=== PATIENT | female | born 1955 | race Two or more races ===

== ENCOUNTER 2019-06-16 21:19 | Emergency (ER) | payer OTHER, MEDICAID ==
[~2019-06-16] VITALS: Ht 152.4 cm; Wt 63.5 kg
--- NOTE | 2019-06-16 21:19 | NUR ---
PT BIBA BLS. TAKEN TO BED 9
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
--- NOTE | 2019-06-16 21:29 | NUR ---
Dr. Edwards examining patient.
[2019-06-16] MEDS ORDERED: ACETAMINOPHEN EXTRA STRENGTH 500 MG TAB PO ONE (21:35)
--- NOTE | 2019-06-16 21:39 | NUR ---
PT TAKEN TO CT
--- NOTE | 2019-06-16 22:30 | NUR ---
PT RETURNED FROM CT. PT IS AWAKE, LAYING ON BED. C/O OF NECK, SHOULDER, AND BACK PAIN 06/30. DR HENRIQUEZ AWARE. WILL CONTINUE TO MONITOR.
--- NOTE | 2019-06-16 22:37 | NUR ---
SON AT BEDSIDE
[2019-06-16 23:25] VITALS: BP 131/77
--- NOTE | 2019-06-16 23:25 | NUR ---
PT DISCHARGE WITH PAPERWORK. RX NAPROXEN FOR PAIN. EDUCATED PT REGARDING MEDICATIONS AND SIDE EFFECTS. TOLD PT TO FOLLOW UP WITH PCP AND WHEN TO RETURN TO ED. PT VSS. ALL QUESTIONS ANSWERED.
== END 2019-06-16 23:25 | disposition home or self-care (01) ==
LOC: MED 21:19
DX: S16.1XXA Strain of muscle, fascia and tendon at neck level, initial encounter (principal); M25.511 Pain in right shoulder; M54.6 Pain in thoracic spine; V49.59XA Passenger injured in collision with other motor vehicles in traffic accident, initial encounter; Y93.89 Activity, other specified; Y92.488 Other paved roadways as the place of occurrence of the external cause; Y99.8 Other external cause status
CPT/HCPCS: 70450; 72072; 72125; 73030; 99284

== ENCOUNTER 2023-12-26 13:20 | Inpatient (IN) | payer MEDICAID, MEDICARE ==
[~2023-12-26] VITALS: Ht 172.7 cm; Wt 80.7 kg
[2023-12-26 13:23] VITALS: BP 127/72; PULSE 62; RESP 18; TEMP 98.1; O2SAT 97
[2023-12-26 14:26] LABS: BASOPHILS % (AUTO) 0.5 % (0.0-2.0); EOSINOPHILS # (AUTO) 0.1 K/uL (0-0.4); EOSINOPHILS % (AUTO) 1.8 % (0.0-4.0); HEMATOCRIT 38.9 % (36-48); HEMOGLOBIN 13.2 g/dL (12.0-16.0); LYMPHOCYTES # (AUTO) 1.9 K/uL (2.5-16.5); LYMPHOCYTES % (AUTO) 29.2 % (20.5-51.1); MEAN CORPUSCULAR HEMOGLOBIN 31 pg (27-31); MEAN CORPUSCULAR HGB CONC 34 g/dL (33-37); MEAN CORPUSCULAR VOLUME 91.7 fL (80-94); MONOCYTES # (AUTO) 0.5 K/uL (0.8-1.0); MONOCYTES % (AUTO) 7.6 % (1.7-9.3); NEUTROPHILS # (AUTO) 3.9 K/uL (1.8-7.7); NEUTROPHILS % (AUTO) 60.9 % (42.2-75.2); PLATELET COUNT (AUTO) 230 K/uL (140-450); RED BLOOD CELL COUNT(AUTO) 4.25 MIL/uL (4.20-5.40); RED CELL DISTRIBUTION WIDTH 13.1 % (11.6-13.7); WHITE BLOOD COUNT (AUTO) 6.4 K/uL (4.8-10.8)
[2023-12-26 14:37] LABS: ANION GAP 13.2 (8-16); CALCIUM 8.6 mg/dL (8.5-10.1); CARBON DIOXIDE 28.6 mmol/L (21-32); CREATININE 0.7 mg/dL (0.6-1.3); INR 1.09 (0.8-1.2); PARTIAL THROMBOPLASTIN TIME 22.7 secs (22-35.6); POTASSIUM 3.8 mmol/L (3.5-5.1); PROTHROMBIN TIME 11.4 secs (10.8-13.4)
[2023-12-26] MEDS: NACL 0.9% 1,000 ML IV SCH (14:41)
[2023-12-26] MEDS ORDERED: cefTRIAXone 1,000 MG VIAL ONE (14:42)
[2023-12-26 14:53] LABS: APPEARANCE,URINE CLEAR (CLEAR); BILIRUBIN,URINE NEGATIVE (NEGATIVE); BLOOD, URINE NEGATIVE (NEGATIVE); COLOR,URINE YELLOW (YELLOW); LEUKOCYTE ESTERASE ,URINE NEGATIVE (NEGATIVE); NITRITE, URINE NEGATIVE (NEGATIVE); PH,URINE 5.5 (5.0-9.0); PROTEIN,URINE NEGATIVE (NEGATIVE); UGLUCOSE NEGATIVE (NEGATIVE); UROBILINOGEN,URINE 0.2 EU/dL (0.2 - 1)
[2023-12-26 15:23] LABS: LACTIC ACID 0.8 mmol/L (0.4-2.0)
[2023-12-26] MEDS: cefTRIAXone 1,000 MG in DEXT 5% MINI-BAG PLUS 50 ML IV ONE (15:27)
[2023-12-26] MEDS ORDERED: ACETAMINOPHEN 325 MG TAB PO PRN (16:05)
[2023-12-26] MEDS ORDERED: HYDROcodone/APAP 5/325 MG 1 TAB TAB PO PRN (16:05)
[2023-12-26] MEDS ORDERED: POLYETHYLENE GLYCOL 17 GM/PKT PO PRN (16:05)
[2023-12-26] MEDS ORDERED: MAG SULF 2000 MG/WATER PREMIX 50 ML IV PRN (16:05)
[2023-12-26] MEDS ORDERED: MELATONIN 3 MG TAB PO PRN (16:05)
[2023-12-26] MEDS ORDERED: POTASSIUM CHLORIDE 10 MEQ TABER PO PRN (16:05)
[2023-12-26] MEDS ORDERED: MORPHINE SULFATE 2 MG/ML SYR IVP PRN (16:05)
[2023-12-26 16:42] VITALS: O2SAT 96
[2023-12-26 19:00] VITALS: PULSE 66; RESP 18; O2SAT 96
[2023-12-26 19:52] VITALS: PULSE 61
[2023-12-26 20:00] VITALS: BP 140/71; PULSE 66; RESP 18; TEMP 97.5; O2SAT 96
[2023-12-26] MEDS: NACL 0.9% 500 ML IV ONE (21:39)
[2023-12-26] MEDS: ONDANSETRON 4 MG/2 ML VIAL IVP PRN (23:01)
[2023-12-26] MEDS ORDERED: hydrALAZINE 20 MG/ML VIAL IVP PRN (23:35)
[2023-12-26 23:46] VITALS: PULSE 64
[2023-12-27] VITALS: BP 142/74; PULSE 64; RESP 18; TEMP 97.8; O2SAT 96
[2023-12-27 04:00] VITALS: BP 120/54; PULSE 63; PULSE 64; RESP 18; TEMP 97.5; O2SAT 96
[2023-12-27 07:21] LABS: BASOPHILS % (AUTO) 0.5 % (0.0-2.0); EOSINOPHILS # (AUTO) 0.1 K/uL (0-0.4); EOSINOPHILS % (AUTO) 1.9 % (0.0-4.0); HEMATOCRIT 39.5 % (36-48); HEMOGLOBIN 13.6 g/dL (12.0-16.0); LYMPHOCYTES # (AUTO) 1.5 K/uL (2.5-16.5); LYMPHOCYTES % (AUTO) 24.4 % (20.5-51.1); MEAN CORPUSCULAR HEMOGLOBIN 31 pg (27-31); MEAN CORPUSCULAR HGB CONC 34 g/dL (33-37); MEAN CORPUSCULAR VOLUME 90.7 fL (80-94); MONOCYTES # (AUTO) 0.4 K/uL (0.8-1.0); MONOCYTES % (AUTO) 7.2 % (1.7-9.3); PLATELET COUNT (AUTO) 230 K/uL (140-450); RED BLOOD CELL COUNT(AUTO) 4.36 MIL/uL (4.20-5.40); RED CELL DISTRIBUTION WIDTH 13.5 % (11.6-13.7)
[2023-12-27 07:42] LABS: FREE T4 (FREE THYROXINE) 2.09 ng/dL (0.76-1.46); THYROID STIMULATING HORMONE 1.25 uIU/mL (0.34-3.74)
[2023-12-27 07:53] LABS: ALBUMIN 2.8 g/dL (3.4-5.0); ANION GAP 11.4 (8-16); CALCIUM 8.6 mg/dL (8.5-10.1); CREATININE 0.6 mg/dL (0.6-1.3); MAGNESIUM 1.9 mg/dL (1.8-2.4); PHOSPHORUS 4.2 mg/dL (2.5-4.9); POTASSIUM 3.4 mmol/L (3.5-5.1); TOTAL BILIRUBIN 0.3 mg/dL (0.0-1.0); TOTAL PROTEIN, SERUM 7.2 g/dL (6.4-8.2)
[2023-12-27] MEDS: amLODIPine 5 MG TAB PO SCH (10:26)
== END 2023-12-27 15:32 | disposition left against medical advice (07) | DRG 422 ==
LOC: MED 13:20 → MTU 16:09
PROVIDERS: ADMIT Family Medicine; ATTEND Family Medicine
DX: E86.0 Dehydration (principal); G93.41 Metabolic encephalopathy; E87.20 Acidosis, unspecified; F03.90 Unspecified dementia, unspecified severity, without behavioral disturbance, psychotic disturbance, mood disturbance, and anxiety; E78.5 Hyperlipidemia, unspecified; I10 Essential (primary) hypertension; R00.1 Bradycardia, unspecified; Z79.899 Other long term (current) drug therapy
CPT/HCPCS: 36415; 70450; 71045; 80048; 80053; 81003; 83605; 83735; 83880; 84100; 84439; 84443; 84484; 85025; 85610; 85730; 87040; 87081; 87086; 93005; 96361; 96365; 97116; 97163-GP; 99285; J0696; J2405